=== PATIENT | female | born 1965 | race Caucasian/White ===

== ENCOUNTER 2017-02-11 16:31 | Emergency (ER) | payer OTHER ==
--- NOTE | ~2017-02-11 | EKG ---
PATIENT: COLLEEN MONREAL UNIT #: [id number] Ventricular Rate: 66 BPM Atrial Rate: 66 BPM P-R Interval: 186 ms QRS Duration: 96 ms Q-T Interval: 412 ms QTC Calculation(Bezet): 431 ms P [place]: 47 degrees Calculated R [place]: 3 degrees Calculated T [place]: 134 degrees Diagnosis Line: Sinus rhythm with marked sinus arrhythmia Diagnosis Line: T wave abnormality, consider lateral ischemia Diagnosis Line: Abnormal ECG Diagnosis Line: Diagnosis Line: Confirmed by DEB DORANTES MD ([id number]) on 02/12/2017 Diagnosis Line: 8:00:15 PM INTERPRETING MD: JOSE E RICH
--- NOTE | ~2017-02-11 | CR72 ---
[facility] A Service of [facility] RADIOLOGY TEXT RESULTS PATIENT: COLLEEN MONREAL LOCATION: [facility] : 65 UNIT #: [id number] AGE: [address]: Carly Saeed MD SEX: F ORDER DR: [id number] [facility] [address] [place], [place] [address] [id number] E MR#: [id number] Acc #: [id number] NAME: COLLEEN MONREAL : 1965 SEX: F STUDY DATE/TIME: 02/11/2017 15:55 UNIT: [facility] ROOM: STUDY DESCRIPTION: CR Chest Single View Portable Attending Physician: Carly Saeed M.D. Ordering Physician: Carly Saeed M.D. Primary Care Physician: Todd Nice M.D. MEDICAL IMAGING REPORT This report is preliminary unless electronic signature is present EXAM Portable chest radiograph. INDICATION Chest pain. This is midsternal and started today. FINDINGS Cardiomegaly is identified. There may be some mild vascular congestion. Appearance is stable when compared to October 2014. No pneumothorax, pleural effusion, or acute infiltrate is seen. Dictated by... Caren Brothers M.D. THIS IS AN ELECTRONICALLY VERIFIED REPORT Caren Brothers M.D. at 02/12/2017 12:59 PM AFF/tmw TD: 02/11/2017 17:08 JOB #: [id number] MEDICAL IMAGING REPORT Page 1 of 1 COPY
[2017-02-11 16:06] LABS: BASOPHIL# 0.1 X10e3 (0-0.3); BASOPHIL% 0.9 % (0-2.5); EOSINOPHIL# 0.3 X10e3 (0-0.7); EOSINOPHIL% 3.1 % (0.0-7.0); HEMATOCRIT 38.6 % (35.0-45.0); HEMOGLOBIN 12.7 gm/dL (12.0-16.0); LYMPHOCYTE# 1.8 X10e3 (1.0-3.5); LYMPHOCYTE% 19.8 % (17.0-45.0); MEAN PLATELET VOLUME 8.4 FL (6.5-11.5); MONOCYTE# 0.8 X10e3 (0-1.0); MONOCYTE% 8.2 % (3.0-12.0); NEUTROPHIL# 6.3 X10e3 (1.5-7.1); PLATELET COUNT 235 X10e3 (140-420); WHITE BLOOD COUNT 9.3 X10e3 (4.0-10.5)
[2017-02-11 16:08] LABS: DIFF IND NO
[2017-02-11 16:16] LABS: POC - CKMB 1.1 ng/mL (0.0-7.9); POC - TROPONIN <0.05 ng/mL (<=0.05)
[2017-02-11 16:18] LABS: PARTIAL THROMBOPLASTIN TIME 26.5 SECONDS (23.5-31.3); PROTHROMBIN TIME (PATIENT) 10.6 SECONDS (9.6-11.5)
[~2017-02-11 16:31] MED LIST: ADVAIR 250-501 EACH IH; AMLODIPINE BESYL5 MG PO; ASPIRIN81 M1 PO; ASPIRINEC PO; BACLOFEN20 M1 PO; BUMEX PO; CIPRO PO; DELSYM30 MG/5 M1 PO; DOC Q LACE PO; DUONEB 2.5-0.5 M3 ML NEB; FERROUS SULFATE PO; FLEXERIL PO; FLEXERIL10 MG PO; HCTZ PO; HYDROCODONE-APA1 T56 PO; IBUPROFEN PO; IMDUR-ER30 MG PO; ISOSORBIDE DINI30 MG PO; K-DUR10 MEQ PO; KCL PO; KEFLEX PO; LABETALOL HCL200 MG PO; LASIX PO; LASIX20 MG PO; LEVOTHROID125 MCG PO; LISINOPRIL PO; LOPRESSOR; LOPRESSOR PO; LORTAB 10/500 T1 TAB PO; MICRO-K PO; NAPROSYN500 MG PO; NORMODYNE PO; NORVASC PO; PAXIL PO; PAXIL30 MG PO; PEN-VEE K PO; PRAVACHOL PO; PRAVACHOL20 MG PO; PRAVASTATIN SOD40 MG PO; PREDNISONE PO; PRENATAL MULITV1 TAB PO; QVAR7.3 GM INH; SEPTRA SUSPENS100 ML PO; SYNTHROID PO; SYNTHROID125 PO; TOPROL XL PO; TRINATE; VICODIN 5/1 TAB 5/50 PO; WALMART PHARMACY; ZITHROMAX PO; ZOCOR PO; ZYLOPRIM PO; [UNRECOGNIZED DRUG - REMARK]
[2017-02-11 16:36] LABS: ALBUMIN SERUM 3.8 g/dL (3.5-5.0); BILIRUBIN, DIRECT 0.1 mg/dL (0.0-0.2); BILIRUBIN,INDIRECT 0.5 mg/dL (0.0-0.9); BILIRUBIN,TOTAL 0.6 mg/dL (0.2-2.0); BUN/CREATININE RATIO 10.76; CALCIUM SERUM 8.9 mg/dL (8.4-10.2); CREATININE SERUM 1.3 mg/dL (0.6-1.4); GLOM FILT RATE Estimated 47.5 mL/min (>60); POTASSIUM 3.8 mmol/L (3.5-5.1); PROTEIN TOTAL SERUM 7.4 g/dL (6.0-8.3)
[2017-02-11 17:50] LABS: POC - CKMB 1.1 ng/mL (0.0-7.9); POC - TROPONIN <0.05 ng/mL (<=0.05)
== END 2017-02-11 18:51 | disposition home or self-care (01) ==
LOC: CED 16:31
PROVIDERS: Emergency Medicine
DX: R07.89 Other chest pain (principal); I10 Essential (primary) hypertension; F17.200 Nicotine dependence, unspecified, uncomplicated; Z98.890 Other specified postprocedural states; Z88.5 Allergy status to narcotic agent
CPT/HCPCS: 36415; 71010; 80048; 80076; 82553; 84484; 85025; 85379; 85610; 85730; 93005; 99284

== ENCOUNTER 2017-05-05 10:08 | Emergency (ER) | payer OTHER ==
--- NOTE | ~2017-05-05 | CT4 ---
[facility] A Service of [facility] RADIOLOGY TEXT RESULTS PATIENT: COLLEEN MONREAL LOCATION: [facility] : 65 UNIT #: [id number] AGE: [address]: Eron Tavarez SEX: F ORDER DR: [id number] [facility] [address] [place], [place] [address] [id number] E MR#: [id number] Acc #: [id number] NAME: COLLEEN MONREAL : 1965 SEX: F STUDY DATE/TIME: 05/05/2017 10:58 UNIT: [facility] ROOM: STUDY DESCRIPTION: CT Abd and Pelv Wo Cont Attending Physician: Eron Tavarez Ordering Physician: Eron Tavarez Primary Care Physician: Todd Nice M.D. MEDICAL IMAGING REPORT This report is preliminary unless electronic signature is present EXAM CT abdomen and pelvis without contrast HISTORY 51-year-old female left lower back pain going into shoulder starting May 04. History of kidney stones. Prior cholecystectomy and stone removal. COMPARISON CT abdomen and pelvis 10/26/2014. This CT exam was performed with one or more of the following radiation dose reduction techniques: automatic exposure control, adjustment of mA and/or kV according to patient size, and iterative reconstruction. FINDINGS Axial images performed through the abdomen and pelvis without contrast. Multiplanar reconstructed images reviewed at a workstation. Image quality degraded due to patient body habitus and associated image noise. ABDOMEN: Lung bases unremarkable. The liver and spleen unremarkable except for mild to moderate splenomegaly, unchanged prior studies. Gallbladder surgically absent. Pancreas and adrenal glands unremarkable. Dystrophic cortical calcification noted in the midpole of the left kidney. No hydronephrosis or obstructing stone identified. Visualized GI tract unremarkable. PELVIS: Bladder, uterus and adnexa appear normal. Osseous structures unremarkable. Generalized obesity. IMPRESSION 1. No acute intraabdominal intrapelvic pathology identified. Study degraded due to generalized obesity and lack of contrast. [facility] A Service of [facility] RADIOLOGY TEXT RESULTS PATIENT: COLLEEN MONREAL LOCATION: [place] : 65 UNIT #: [id number] AGE: [address]: Eron Tavarez SEX: F ORDER DR: 2. Not mentioned above the patient does demonstrate a small umbilical hernia containing omental fat only. 3. Small amount of dystrophic calcification midpole left kidney unchanged from prior study. Dictated by... Amrik Cullen M.D. THIS IS AN ELECTRONICALLY VERIFIED REPORT Amrik Cullen M.D. at 05/06/2017 12:30 PM YUNI/joel TD: 05/05/2017 23:32 JOB #: [id number] MEDICAL IMAGING REPORT Page 1 of 1 COPY
[2017-05-05 10:44] LABS: URINE SOURCE CLEAN CATCH
[2017-05-05 10:49] LABS: URINE APPEARANCE CLEAR; URINE BILIRUBIN NEG (NEG); URINE BLOOD TRACE (NEG); URINE COLOR YELLOW; URINE GLUCOSE NEG (NEG); URINE KETONE NEG (NEG); URINE LEUKOCYTE ESTERASE TRACE (NEG); URINE NITRATE NEG (NEG); URINE PH 6.5 (5-8); URINE PROTEIN 2+ (NEG); URINE SPECIFIC GRAVITY 1.009 (1.003-1.035); URINE UROBILINOGEN 0.2 MG/DL (NEG)
[2017-05-05 10:52] LABS: CULTURE INDICATED? YES; URBCS1 AUWI 0-2 /[HPF] (0-2); URINE BACTERIA AUWI 1+ (NEGATIVE); URINE SQUAMOUS EPITHELIAL CELL OCC /[HPF]
[2017-05-05 11:04] LABS: BASOPHIL# 0.1 X10e3 (0-0.3); EOSINOPHIL# 0.6 X10e3 (0-0.7); EOSINOPHIL% 6.8 % (0.0-7.0); HEMATOCRIT 42.6 % (35.0-45.0); HEMOGLOBIN 13.6 gm/dL (12.0-16.0); LYMPHOCYTE# 2.3 X10e3 (1.0-3.5); LYMPHOCYTE% 25.8 % (17.0-45.0); MEAN CELL VOLUME 89.7 FL (83-96); MEAN CORPUSCULAR HEMOGLOBIN 28.7 PG (28-34); MEAN PLATELET VOLUME 8.2 FL (6.5-11.5); MONOCYTE# 0.6 X10e3 (0-1.0); MONOCYTE% 7.3 % (3.0-12.0); NEUTROPHIL# 5.2 X10e3 (1.5-7.1); NEUTROPHIL% 59.1 % (40-75); PLATELET COUNT 263 X10e3 (140-420); RED BLOOD COUNT 4.75 X10e (3.90-5.30); RED CELL DISTRIBUTION WIDTH 15.2 % (11.0-15.5); WHITE BLOOD COUNT 8.8 X10e3 (4.0-10.5)
[2017-05-05 11:05] LABS: DIFF IND NO
[2017-05-05 11:30] LABS: ALBUMIN SERUM 3.9 g/dL (3.5-5.0); BILIRUBIN,TOTAL 0.4 mg/dL (0.2-2.0); BUN/CREATININE RATIO 8.33; CALCIUM SERUM 9.5 mg/dL (8.4-10.2); CREATININE SERUM 1.2 mg/dL (0.6-1.4); GLOM FILT RATE Estimated 52.3 mL/min (>60); POTASSIUM 4.5 mmol/L (3.5-5.1); PROTEIN TOTAL SERUM 7.7 g/dL (6.0-8.3)
== END 2017-05-05 11:36 | disposition home or self-care (01) ==
LOC: CFTX 10:08 → CED 10:08 → CFTX 10:29
PROVIDERS: Nurse Practitioner
DX: S39.012A Strain of muscle, fascia and tendon of lower back, initial encounter (principal); S23.3XXA Sprain of ligaments of thoracic spine, initial encounter; I10 Essential (primary) hypertension; J44.9 Chronic obstructive pulmonary disease, unspecified; F41.9 Anxiety disorder, unspecified; F17.210 Nicotine dependence, cigarettes, uncomplicated; Z88.5 Allergy status to narcotic agent; Z90.49 Acquired absence of other specified parts of digestive tract; X58.XXXA Exposure to other specified factors, initial encounter; Y92.9 Unspecified place or not applicable
CPT/HCPCS: 36415; 74176; 80053; 81003; 84703; 85025; 87086; 96374; 96375; 99284; J1885; J2405